=== PATIENT | female | born 1950 | race Caucasian/White ===

== ENCOUNTER 2024-06-10 07:37 | Emergency (ER) | payer MEDICARE, OTHER, SELFPAY ==
[2024-06-10 07:40] VITALS: BP 149/84
[2024-06-10 08:00] VITALS: BMI 16.8
[2024-06-10 08:16] VITALS: BP 118/56
[2024-06-10] MEDS: DUONEB 3 ML INH (08:46)
[2024-06-10 08:53] LABS: % Basophils 0.7 % (0-2); % Immature Granulocytes 0.5 % (0-0.5); % Lymphocytes 20.4 % (20.5-51.1); % Monocytes 13.4 % (1.7-9.3); Absolute Lymphocytes 0.8 10^3/uL (1.2-3.4); Absolute Monocytes 0.6 10^3/uL (0.1-0.6); Absolute Neutrophils 2.6 10^3/uL (1.4-6.5); Hematocrit 40.3 % (37.0-47.0); Hemoglobin 12.5 g/dL (12.0-16.0); Mean Corpuscular Hgb 26.2 pg (27.0-31.0); Mean Corpuscular Volume 84.3 fL (81.0-99.0); Nucleated Red Blood Cells % 0 %; Platelet Count 196 10^3/uL (130-400); Red Blood Cell Count 4.78 10^6/uL (4.20-5.40); White Blood Cell Count 4.1 10^3/uL (4.8-10.8)
[2024-06-10 09:09] LABS: ALT (SGPT) 23 U/L (0-35); AST (SGOT) 33 U/L (14-36); Albumin 3.7 g/dl (3.5-5.0); Alkaline Phosphatase 50 U/L (38-126); Blood Urea Nitrogen 21 mg/dl (7-17); Carbon Dioxide 33 mmol/L (22-30); Chloride 106 mmol/L (98-107); Estimated Creatinine Clearance 33 ml/min; Glucose 90 mg/dl (70-99); Potassium 4.1 mmol/L (3.5-5.1); Sodium 143 mmol/L (135-145); Total Bilirubin 0.6 mg/dl (0.2-1.3); Total Protein 7.1 g/dl (6.3-8.2); eGFR 59.86
--- NOTE | 2024-06-10 09:18 | ED.GENMED ---
History of Present Illness
General
Chief Complaint: Cold/Flu/URI Symptoms
Source: patient and spouse
Exam Limitations: none
Time Seen by Provider: 06/10/24 08:13
History of Present Illness
History of Present Illness:
This is a 74yo female with hx of bronchiectasis who presents after she coughed up blood at home. Patient and her state that she has had a cold for the last week and seem to be doing little better but still had a cough. This morning when
she coughed and spit up into the toilet it was bloody. She has a history of bronchiectasis and is followed with pulmonology. She also has had a partial lobectomy. Patient currently feels well and offers no complaints. She does not feel short of
breath. She has had no fevers today. She did have a brief fever during her illness that resolved. She denies leg swelling. She denies calf pain or cramping. She denies chest pain. She denies pleuritic pain. No recent travel. Not
anticoagulated
Past History
Past History
ED Past Medical History: Other (Previous lung resection for non-TB mycobacterium, left wrist ORIF, hyperlipidemia, bronchiectasis)
ED Past Surgical History: , Orthopedic and Other (Pulmonary lobectomy)
Social History
Tobacco: Non-smoker
Alcohol: None
Family History
Family History: Other (Mother with pacemaker, brother with coronary disease, parents with brain tumor, previous family history of stroke)
Phy Exam
Physical Exam
Physical Exam:
CONSTITUTIONAL Patient alert and oriented to person, place and time. Well-appearing. Vital signs reviewed.
HEAD atraumatic, normocephalic.
EYES eyelids normal to inspection, Extraocular muscles intact, Conjunctiva normal, Sclera normal.
ENT scabbed lesion noted to the right upper lip. Just to the right of midline below the nose with some scabbing noted to the margin of the lip. There is no surrounding redness. No evidence of impetigo. Patient states it was burning but now feels
better. There is noted mild swelling of this area.
NECK normal range of motion, Trachea midline, no jugular venous distention.
RESPIRATORY CHEST No respiratory distress noted, Chest expansion equal, crackles and wheezing noted bilaterally. Respiratory rate is 16
CARDIOVASCULAR regular rate and rhythm, Heart sounds normal.
ABDOMEN abdomen nontender, Bowel sounds normal. No distention.
BACK normal inspection, no obvious deformities
UPPER EXTREMITY range of motion normal, Motor strength normal, no cyanosis, no edema.
LOWER EXTREMITY range of motion normal, Motor strength normal, no cyanosis, no edema.
NEURO Speech normal, No focal motor deficits, [place] coma scale 15, Memory normal, Cranial Nerves intact to screening exam.
SKIN skin warm, dry, and normal in color.
Course
Orders/Labs/Results
Orders:
Orders
06/10/24 08:14
CR Chest - 2 Views Urgent
Comment:
Reason For Exam: cough, hemoptysis
06/10/24 08:34
Ipratropium/Albuterol Sulfate [Duoneb] 3 ml INH R NOW STA
06/10/24 08:41
Complete Blood Count/With Diff Urgent
Comprehensive Metabolic Panel Urgent
06/10/24 09:17
Dexamethasone Sod Phosphate [Decadron] 10 mg IV NOW STA
06/10/24 09:18
LevoFLOXacin [Levaquin] 500 mg PO NOW STA
Abnormal Lab Results
06/10/24
08:41
WBC 4.1 L 10^3/uL
(4.8-10.8)
MCH 26.2 L pg
(27.0-31.0)
MCHC 31.0 L g/dL
(33.0-37.0)
Absolute Lymphs (auto) 0.8 L 10^3/uL
(1.2-3.4)
Lymphocytes % 20.4 L %
(20.5-51.1)
Monocytes % 13.4 H %
(1.7-9.3)
Carbon Dioxide 33 H mmol/L
(22-30)
BUN 21 H mg/dl
(7-17)
06/10/24 08:41
06/10/24 08:41
Vital Signs
Initial and Last Documented VS:
Initial Vital Signs
Temp Pulse Resp BP Pulse Ox
98.0 F 74 16 149/84 98
06/10/24 07:40 06/10/24 07:40 06/10/24 07:40 06/10/24 07:40 06/10/24 07:40
Last Documented Vital Signs
Temp Pulse Resp BP Pulse Ox
98.0 F 67 22 118/56 98
06/10/24 07:40 06/10/24 09:00 06/10/24 09:00 06/10/24 08:16 06/10/24 09:00
MDM/Problems Addressed
Differential Diagnosis Includes:
Pneumonia, bronchitis, pulmonary embolism
MDM/Problems Addressed:
Acute hemoptysis, acute bronchitis, chronic bronchiectasis
*Radiology
Radiology exam reviewed: all reviewed NAD by ED Provider (No changes from previous)
*Pulse Oximetry
Patient hypoxic: no
*Critical Care Note
Total Time (30-74mins, 75-104mins- exclusive of procedures): Not Applicable
Data Reviewed
Source: patient and spouse
Further Testing Considered But Not Given:
Considered chest CT but no clinical concern for pulmonary embolism
Patient Management
Escalation/DeEscalation of care consider admission/obs:
Patient offers no current complaints. She has had no further hemoptysis. In light of her recent 'cold', suspect bronchitis. no clinical concern for PE as no specific risks and recent fever. no dvt signs. cover with steroids, nebs, abx. pt will
followup with her manager investment banking.
ED Attending Note
-
Portions of this chart may have been created with voice recognition software.� Occasional wrong word or��sound alike� substitutions may have occurred due to the inherent limitations of voice recognition software.
Discharge Plan
Departure
Patient Disposition: Home (Routine Discharge)
Date of Disposition: 06/10/24
Time of Disposition: 09:28
Patient with high blood pressure during this ER visit?: No
Discharge Problem:
Hemoptysis, Acute bronchitis
Instructions: Acute Bronchitis, Adult (DC), Coughing up blood
Prescriptions:
New
prednisone 10 mg Tablet
See Rx Instructions .ROUTE .COMPLEX Qty: 30 0RF
Rx Instructions:
Take By Mouth:
40 mg daily x3 days, 30 mg daily x3 days,
20 mg daily x3 days, 10 mg daily x3 days.
albuterol sulfate 2.5 mg /3 mL (0.083 %) solution for nebulization
2.5 mg inhalation Q4H PRN (Reason: shortness of breath or wheezing) Qty: 90 0RF
levofloxacin 250 mg tablet
250 mg PO DAILY Qty: 6 0RF
No Action
hydrocortisone 1 APPLIC cream
1 applic topical BID Qty: 1 0RF
Rx Instructions:
Apply to your left arm rash twice daily
Referrals:
Neal Torres MD [Family Provider] -
Activity Restrictions/Additional Instructions:
Please see your manager investment banking in the next 2 weeks for follow-up and reevaluation. Return immediately for shortness of breath, fevers, recurrent hemoptysis, leg swelling, change in mental status or any other concerns.
Interventions
Interventions:
*Risk Screen - Suicide Last Done: 06/10/24 07:40
*Neglect/Abuse Screening Last Done: 06/10/24 07:40
ED- Fall Risk Assessment Last Done: 06/10/24 08:01
*ED COVID-19 Vaccine History Last Done: 06/10/24 07:41
ED- Pulmonary Assessment Last Done: 11/15/24 08:01
Discharge Date and Time
Print Language: KYRGYZ
[2024-06-10] MEDS: DECADRON 10 MG IV (09:22)
[2024-06-10] MEDS: LEVAQUIN 500 MG PO (09:22)
== END 2024-06-10 09:40 | disposition home or self-care (01) ==
LOC: EMR 07:37
PROVIDERS: EMERGENCY PHYSICIAN Emergency Medicine; FAMILY PHYSICIAN Internal Medicine; REFERRING PHYSICIAN Internal Medicine Pulmonary Disease
DX: R04.2 Hemoptysis (principal); J20.9 Acute bronchitis, unspecified; J47.0 Bronchiectasis with acute lower respiratory infection; E78.00 Pure hypercholesterolemia, unspecified; Z82.3 Family history of stroke; Z82.49 Family history of ischemic heart disease and other diseases of the circulatory system
CPT/HCPCS: 99283; 94640; 96374; 71046; 80053; 85025

== ENCOUNTER → 2024-07-02 09:39 | Outpatient (REF) | payer MEDICARE, OTHER, SELFPAY | LOC: RAD 09:39 | PROVIDERS: ATTENDING PHYSICIAN Internal Medicine Pulmonary Disease; FAMILY PHYSICIAN Internal Medicine | DX: J47.9 Bronchiectasis, uncomplicated (principal); J96.12 Chronic respiratory failure with hypercapnia | CPT/HCPCS: 71250 ==

== ENCOUNTER → 2024-07-08 07:06 | Outpatient (REF) | payer MEDICARE, OTHER, SELFPAY | LOC: HWRCS 07:06 | PROVIDERS: ATTENDING PHYSICIAN Internal Medicine; FAMILY PHYSICIAN Internal Medicine | DX: R06.09 Other forms of dyspnea (principal); I49.1 Atrial premature depolarization; I25.10 Atherosclerotic heart disease of native coronary artery without angina pectoris | CPT/HCPCS: 93306 ==

== ENCOUNTER → 2024-07-11 08:46 | Outpatient (REF) | payer MEDICARE, OTHER, SELFPAY | LOC: RCS 08:46 | PROVIDERS: ATTENDING PHYSICIAN Internal Medicine; FAMILY PHYSICIAN Internal Medicine | DX: R06.9 Unspecified abnormalities of breathing (principal); I49.1 Atrial premature depolarization; I25.10 Atherosclerotic heart disease of native coronary artery without angina pectoris | CPT/HCPCS: 93017 ==

== ENCOUNTER → 2024-12-27 10:59 | Outpatient (REF) | payer MEDICARE, OTHER, SELFPAY | LOC: WDC 10:59 | PROVIDERS: ATTENDING PHYSICIAN Internal Medicine | DX: Z12.39 Encounter for other screening for malignant neoplasm of breast (principal); Z12.31 Encounter for screening mammogram for malignant neoplasm of breast | CPT/HCPCS: 77063; 77067 ==

== ENCOUNTER 2025-04-05 06:23 | Emergency (ER) | payer MEDICARE, OTHER, SELFPAY ==
[2025-04-05 06:27] VITALS: BP 135/67
[2025-04-05 07:32] LABS: COVID-19 Antigen Negative (Negative)
--- NOTE | 2025-04-05 08:02 | ED.GENMED ---
History of Present Illness
<KELLE Dean - Last Filed: 04/05/25 08:27>
General
Chief Complaint: Cough
Source: patient and spouse
Exam Limitations: none
Time Seen by Provider: 04/05/25 07:15
Nursing documentation reviewed up to this point in time: agreed with
History of Present Illness
History of Present Illness:
Patient is a 75 year old female with PMH of bronchiectasis who presents to the ED with worsening cough. Patient denies chest pain, shortness of breath, fever, chills, or diaphoresis. She reports clear/yellow sputum production. She was recently
around family who had similar symptoms.
Past History
<KELLE Dean - Last Filed: 04/05/25 08:27>
Past History
ED Past Medical History: Other (Previous lung resection for non-TB mycobacterium, left wrist ORIF, hyperlipidemia, bronchiectasis)
ED Past Surgical History: , Orthopedic and Other (Pulmonary lobectomy)
Patient has exhibited threatening behavior?: No
Social History
Tobacco: Non-smoker
Alcohol: None
Drug: None
Personal:
Living: with family
Family History
Family History: Other (Mother with pacemaker, brother with coronary disease, parents with brain tumor, previous family history of stroke)
Review of Systems
<KELLE Dean - Last Filed: 04/05/25 08:27>
Review of Systems
Allergies reviewed?: Yes
All Other Systems: ROS reviewed and negative except as documented in HPI and ROS
Constitutional: Reports no symptoms
EENT: Reports runny nose
Respiratory: Reports cough
Cardiac: Reports no symptoms
ABD/GI: Reports no symptoms
: Reports no symptoms
Musculoskeletal: Reports no symptoms
Skin: Reports no symptoms
Phy Exam
<KELLE Dean - Last Filed: 04/05/25 08:27>
General Physical Exam
General Presentation: no apparent distress
General age: appears stated age
General Skin: warm and dry
General Habitus: elderly
General Mental: alert
Eye Exam
Eye Exam: PERRL
Pulmonary Exam
Pulmonary Exam: lungs clear
Oxygen Status: room air
Course
<KELLE Dean - Last Filed: 04/05/25 08:27>
Orders/Labs/Results
Orders:
Orders
04/05/25 06:35
COVID-19 Antigen Urgent
Source: Nasal Swab
Influenza A+B Rapid Molecular Urgent
FERMIN Source: Nasal Swab
Specimen Description:
04/05/25 06:38
Chest [CR Chest - 2 Views ] Urgent
Comment:
Reason For Exam: productive cough, hx bronchiectasis
Vital Signs
Initial and Last Documented VS:
Initial Vital Signs
Temp Pulse Resp BP Pulse Ox
98.4 F 69 26 135/67 98
04/05/25 06:27 04/05/25 06:27 04/05/25 06:27 04/05/25 06:27 04/05/25 06:27
Last Documented Vital Signs
Temp Pulse Resp BP Pulse Ox
98.4 F 84 20 128/85 99
04/05/25 06:27 04/05/25 08:24 04/05/25 08:24 04/05/25 08:24 04/05/25 08:24
<Sarwat Madison MD - Last Filed: 04/05/25 08:30>
Orders/Labs/Results
Orders:
Orders
04/05/25 06:35
COVID-19 Antigen Urgent
Source: Nasal Swab
Influenza A+B Rapid Molecular Urgent
FERMIN Source: Nasal Swab
Specimen Description:
04/05/25 06:38
Chest [CR Chest - 2 Views ] Urgent
Comment:
Reason For Exam: productive cough, hx bronchiectasis
Vital Signs
Initial and Last Documented VS:
Initial Vital Signs
Temp Pulse Resp BP Pulse Ox
98.4 F 69 26 135/67 98
04/05/25 06:27 04/05/25 06:27 04/05/25 06:27 04/05/25 06:27 04/05/25 06:27
Last Documented Vital Signs
Temp Pulse Resp BP Pulse Ox
98.4 F 84 20 128/85 99
04/05/25 06:27 04/05/25 08:24 04/05/25 08:24 04/05/25 08:24 04/05/25 08:24
<KELLE Dean - Last Filed: 04/05/25 08:27>
MDM/Problems Addressed
Differential Diagnosis Includes:
Chronic bronchiectasis, acute bronchitis, viral etiology
MDM/Problems Addressed:
Patient offers no current complaints. She has had no further sputum production while in the ED. In light of her recent 'cold', suspect viral etiology, no clinical concern for PE as no specific risks and recent fever. no dvt signs
Chronic conditions affecting care:
bronchiectasis
<KELLE Dean - Last Filed: 04/05/25 08:27>
*Pulse Oximetry
SaO2: 98
Oxygen Mode of Delivery: Room air
Patient hypoxic: no
*Critical Care Note
Total Time (30-74mins, 75-104mins- exclusive of procedures): Not Applicable
ED Attending Note
<KELLE Dean - Last Filed: 04/05/25 08:27>
-
Portions of this chart may have been created with voice recognition software.� Occasional wrong word or��sound alike� substitutions may have occurred due to the inherent limitations of voice recognition software.
<Sarwat Madison MD - Last Filed: 04/05/25 08:30>
ED Attending Note
Patient seen and examined by attending physician: Yes
I performed the substantive portion of visit, reviewed & personally made and approve the management plan that is documented in note by myself or RICCARDO.: Yes
ED Attending Note:
75-year-old female with a history of bronchiectasis presents with ongoing cough for a week. Exposed to a likely viral illness from her family last week. Had 2 days of sore throat. Sore throat resolved. No fever. Cough mostly at night. Clear
sputum. No chest pain pleuritic pain shortness of breath fever or other complaints.
On exam patient is nontoxic in no distress. Warm and dry. Perfusing well. Speech is normal. Lungs are slightly distant but relatively clear. Heart regular rate and rhythm. Warm and dry. Perfusing well. Grossly nonfocal.
Impression is likely viral bronchitis. No wheezing. No distress. No hypoxia. Do not feel steroids would be beneficial at this time. Will give a prescription for doxycycline but will hold for few days to see if she improves based on time. Also
will try nasal steroid spray. Stable for discharge to follow-up previous records reviewed. Chest x-ray negative. Chronic changes. Chest x-ray reviewed by myself and radiology. Negative COVID
Discharge Plan
Departure
Patient Disposition: Home (Routine Discharge)
Date of Disposition: 04/05/25
Time of Disposition: 08:16
Patient with high blood pressure during this ER visit?: Yes
Discharge Problem:
Ongoing cough, History of bronchiectasis
Instructions: Cough, Adult (DC), BLOOD PRESSURE
Prescriptions:
New
doxycycline hyclate 100 mg capsule
100 mg PO BID 10 Days Qty: 20 0RF
No Action
hydrocortisone 1 APPLIC cream
1 applic topical BID Qty: 1 0RF
Rx Instructions:
Apply to your left arm rash twice daily
prednisone 10 mg Tablet
See Rx Instructions .ROUTE .COMPLEX Qty: 30 0RF
Rx Instructions:
Take By Mouth:
40 mg daily x3 days, 30 mg daily x3 days,
20 mg daily x3 days, 10 mg daily x3 days.
albuterol sulfate 2.5 mg /3 mL (0.083 %) solution for nebulization
2.5 mg inhalation Q4H PRN (Reason: shortness of breath or wheezing) Qty: 90 0RF
levofloxacin 250 mg tablet
250 mg PO DAILY Qty: 6 0RF
Referrals:
Neal Torres MD [Family Provider, Internal Medicine] - Follow up in 2-3 days
Activity Restrictions/Additional Instructions:
Get an [id number] steroid nasal spray
1 puff in each nostril twice a day for 2 weeks
This is likely all viral. I do a prescription for an antibiotic. If symptoms are not improving in the next few days go ahead and start the antibiotic
Interventions
Interventions:
*Risk Screen - Suicide Last Done: 04/05/25 06:27
*General Assessment Last Done: 04/05/25 08:00
*Neglect/Abuse Screening Last Done: 04/05/25 08:00
*Nursing Disposition Last Done: 04/05/25 08:24
ED- Pulmonary Assessment Last Done: 04/05/25 08:00
Discharge Date and Time
Discharge Date/Time: 04/05/25 08:25
Print Language: BENGALI
[2025-04-05 08:24] VITALS: BP 128/85
== END 2025-04-05 08:25 | disposition home or self-care (01) ==
LOC: EMR 06:23
PROVIDERS: EMERGENCY PHYSICIAN Emergency Medicine; FAMILY PHYSICIAN Internal Medicine
DX: J47.9 Bronchiectasis, uncomplicated (principal); R03.0 Elevated blood-pressure reading, without diagnosis of hypertension; E78.5 Hyperlipidemia, unspecified; Z90.2 Acquired absence of lung [part of]; Z82.49 Family history of ischemic heart disease and other diseases of the circulatory system
CPT/HCPCS: 99283; 71046; 87502; 87811

== ENCOUNTER 2025-07-09 23:39 | Emergency (ER) | payer MEDICARE, OTHER, SELFPAY ==
[2025-07-09 23:41] VITALS: BP 128/60
--- NOTE | 2025-07-10 00:01 | ED.GENMED ---
History of Present Illness
General
Chief Complaint: Cold/Flu/URI Symptoms
Time Seen by Provider: 07/10/25 00:00
History of Present Illness
History of Present Illness:
FOCUSED PAST MEDICAL HISTORY
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
REVIEW OF OLD RECORDS
- Patient was seen here related to bronchiectasis in March and 1 year ago diagnosed with bronchitis
Note:
CHIEF COMPLAINT(S)
Cough lasting three to four weeks with elevated temperature.
HISTORY OF PRESENT ILLNESS
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 Approximately a month ago, she developed a persistent cough, which has been present for three to
four weeks. Today, her temperature was noted to be 101.5�F. The patient reports a history of bronchiectasis diagnosed 10 to 20 years ago and has used nebulizer treatments, which caused choking and were discontinued. She also received influenza and
COVID-19 vaccinations last month. On auscultation, a wheeze was detected on the right side. The patient is concerned about ruling out serious conditions, such as pneumonia, and has agreed to undergo swab tests for influenza and COVID-19, along with
a chest X-ray.
PAST MEDICAL AND SURIGICAL HISTORY
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
EXTERNAL RECORDS REVIEWED
Patient recalls prior swab tests for influenza and COVID-19 elsewhere, where results indicated influenza presence.
CHRONIC MEDICAL CONDITIONS SIGNIFICANTLY AFFECTING CARE
Bronchiectasis diagnosed 10 to 20 years ago.
SOCIAL HISTORY
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
PHYSICAL EXAM
General: Alert, no acute distress. Very thin build
Skin: Warm, dry.
Head: Normocephalic, atraumatic.
Neck: Supple, trachea midline.
Eye, ears, nose, mouth, and throat: Oral mucosa moist.
Cardiovascular: Normal peripheral perfusion, no edema.
Respiratory: Non-labored respirations, wheeze noted on the right side. Somewhat decreased bilaterally, no rales
Gastrointestinal: Abdomen nondistended.
Back: Normal range of motion, normal alignment.
Musculoskeletal: Normal range of motion, normal strength.
Neurological: Alert and oriented to person, place, time, and situation.
Psychiatric: Cooperative, appropriate mood and affect.
PROBLEM LIST
Acute:
- Persistent cough with fever
Chronic:
- Bronchiectasis
- History of non-tuberculous mycobacteria infection
PLAN
The patient agreed to swab tests for influenza and COVID-19 to confirm her current status. Additionally, a chest X-ray will be performed to rule out the possibility of pneumonia.
DIFFERENTIAL DIAGNOSIS
The Differential Diagnosis includes, in no particular order and is not limited to:
1. Pneumonia
2. Acute bronchitis
3. Chronic obstructive pulmonary disease exacerbation
4. Influenza
5. COVID-19
6. Upper respiratory tract infection
7. Congestive heart failure
8. Pulmonary embolism
9. Allergic reaction
10. Interstitial lung disease
SUMMARY OF ENCOUNTER
The patient presented to the emergency department with concerns of a persistent cough lasting three to four weeks along with a recent elevated temperature. Swab tests for influenza and COVID-19 were performed and returned negative results. A chest
X-ray was conducted, revealing no signs of pneumonia. However, chronic findings were noted in the left upper lung, and prominent findings were observed on the right side, correlating with the wheeze detected during auscultation. Given the patients
history and chronic bronchiectasis, a decision was made to initiate antibiotic therapy. The patient reported prior use of antibiotics for non-tuberculous mycobacterial infection, but did not specify which was most effective. It was decided to
administer both erythromycin and amoxicillin-clavulanate to address potential infection comprehensively.
DISPOSITION
Discharge.
ASSESSMENT
The patients chronic bronchiectasis may be contributing to the wheezing and cough. The possibility of pneumonia, despite no evident radiologic confirmation, warrants antibiotic treatment.
PLAN
Administer a course of erythromycin and amoxicillin-clavulanate to address potential underlying infection given the patients pulmonary history and presentation.
INDEPENDENT REVIEW OF LABS AND INTERPRETATION OF TESTS
My independent review of the influenza and COVID-19 swab tests indicates negative results for both.
My independent interpretation of the chest X-ray reveals no signs of pneumonia, with chronic findings in the left upper lung and prominent findings on the right side correlating to the area of wheeze.
MEDICATION RECONCILIATION
1. Erythromycin (prescription provided)
2. Amoxicillin-clavulanate (Augmentin) (prescription provided)
MEDICAL DECISION MAKING
-Chronic conditions affecting care: History of non-tuberculous mycobacterial infection, Bronchiectasis
-Complexity of Data Reviewed:
Differential Diagnosis includes pneumonia, acute bronchitis, chronic obstructive pulmonary disease exacerbation, influenza, COVID-19, upper respiratory tract infection, congestive heart failure, pulmonary embolism, allergic reaction, interstitial
lung disease.
-Data:
Category 1
My independent review of swab tests and chest x-ray were discussed above.
-Risk:
Prescription medication was prescribed: Erythromycin and Amoxicillin-clavulanate.
DIAGNOSIS
1. Bronchiectasis (ICD-10: J47)
2. Possible Pneumonia (ICD-10: J18.9)
RADIOLOGY
- Chest x-ray shows increased density at the right base
LABS
- COVID and flu negative
UPDATE
- History of bronchiectasis and [id number] currently not on antibiotics
- Chest x-ray suggests density at the right base
- Started on Augmentin and azithromycin
Past History
Past History
ED Past Medical History: Other (Previous lung resection for non-TB mycobacterium, left wrist ORIF, hyperlipidemia, bronchiectasis)
ED Past Surgical History: , Orthopedic and Other (Pulmonary lobectomy)
Patient has exhibited threatening behavior?: No
Social History
Tobacco: Non-smoker
Alcohol: None
Drug: None
Personal:
Living: with family
Family History
Family History: Other (Mother with pacemaker, brother with coronary disease, parents with brain tumor, previous family history of stroke)
Phy Exam
Physical Exam
Physical Exam:
See HPI
Course
Orders/Labs/Results
Orders:
Orders
07/10/25 00:11
CR Chest - 2 Views Urgent
Comment:
Reason For Exam: cough, h/o bronchiectasis, h/o NTM, h/o L lobectom
07/10/25 00:16
COVID-19 Antigen Urgent
Source: Nasal Swab
Influenza A+B Rapid Molecular Urgent
FERMIN Source: Nasal Swab
Specimen Description:
07/10/25 00:58
Amoxicillin 875 mg/Clav 125 mg [Augmentin 875 mg/125 mg] 1 tablet PO NOW STA
Azithromycin [Zithromax] 500 mg PO NOW STA
Vital Signs
Initial and Last Documented VS:
Initial Vital Signs
Temp Pulse Resp BP Pulse Ox
36.9 C 110 20 128/60 96
07/09/25 23:41 07/09/25 23:41 07/09/25 23:41 07/09/25 23:41 07/09/25 23:41
Last Documented Vital Signs
Temp Pulse Resp BP Pulse Ox
37.7 C 110 20 128/60 96
07/10/25 00:19 07/09/25 23:41 07/09/25 23:41 07/09/25 23:41 07/10/25 00:09
*Pulse Oximetry
SaO2: 96
Oxygen Mode of Delivery: Room air
Patient hypoxic: no
*Critical Care Note
Total Time (30-74mins, 75-104mins- exclusive of procedures): Not Applicable
ED Attending Note
-
Portions of this chart may have been created with voice recognition software.� Occasional wrong word or��sound alike� substitutions may have occurred due to the inherent limitations of voice recognition software.
Discharge Plan
Departure
Patient Disposition: Home (Routine Discharge)
Date of Disposition: 07/10/25
Time of Disposition: 00:59
Patient with high blood pressure during this ER visit?: Yes
Discharge Problem:
Bronchiectasis
Instructions: Bronchiectasis in adults
Prescriptions:
New
amoxicillin-pot clavulanate 875-125 mg tablet
1 tab PO Q12H Qty: 14 0RF
azithromycin [Zithromax] 250 mg tablet
250 mg PO DAILY Qty: 4 0RF
No Action
hydrocortisone 1 APPLIC cream
1 applic topical BID Qty: 1 0RF
Rx Instructions:
Apply to your left arm rash twice daily
prednisone 10 mg Tablet
See Rx Instructions .ROUTE .COMPLEX Qty: 30 0RF
Rx Instructions:
Take By Mouth:
40 mg daily x3 days, 30 mg daily x3 days,
20 mg daily x3 days, 10 mg daily x3 days.
albuterol sulfate 2.5 mg /3 mL (0.083 %) solution for nebulization
2.5 mg inhalation Q4H PRN (Reason: shortness of breath or wheezing) Qty: 90 0RF
levofloxacin 250 mg tablet
250 mg PO DAILY Qty: 6 0RF
doxycycline hyclate 100 mg capsule
100 mg PO BID 10 Days Qty: 20 0RF
Referrals:
Neal Torres MD [Family Provider, Internal Medicine]
Activity Restrictions/Additional Instructions:
We gave you your morning dose of azithromycin and Augmentin. Take the evening dose tonight (Thursday night). Augmentin is twice a day for 7 total days and azithromycin is once a day for 4 additional days. Return if worse or other concerns.
Interventions
Interventions:
*Risk Screen - Suicide Last Done: 07/09/25 23:41
*General Assessment Last Done: 07/10/25 00:25
*Neglect/Abuse Screening Last Done: 07/09/25 23:41
*ED COVID-19 Vaccine History Last Done: 07/10/25 00:25
*ED Influenza Vaccine History Last Done: 07/10/25 00:25
[facility] Fall Risk Assessment Tool Last Done: 07/10/25 01:38
*Nursing Disposition Last Done: 07/10/25 01:38
ED- Pulmonary Assessment Last Done: 07/10/25 00:25
Discharge Date and Time
Discharge Date/Time: 07/10/25 01:39
Print Language: GEORGIAN
[2025-07-10 00:45] LABS: COVID-19 Antigen Negative (Negative)
[2025-07-10] MEDS: AUGMENTIN 875 MG/125 MG 1 TABLET PO (01:22)
[2025-07-10] MEDS: ZITHROMAX 500 MG PO (01:22)
== END 2025-07-10 01:39 | disposition home or self-care (01) ==
LOC: EMR 23:39
PROVIDERS: EMERGENCY PHYSICIAN Emergency Medicine; FAMILY PHYSICIAN Internal Medicine
DX: J47.9 Bronchiectasis, uncomplicated (principal); E78.5 Hyperlipidemia, unspecified; Z11.52 Encounter for screening for COVID-19; Z90.2 Acquired absence of lung [part of]
CPT/HCPCS: 99284; 71046; 87502; 87811